=== PATIENT | female | born 1970 | race Caucasian/White ===

== ENCOUNTER → 2021-06-23 | Outpatient (CLI) | payer OTHER ==
[~2021-06-23] MED LIST: AMBIEN 10 MG TA10 MG PO; AMBIEN5 MG PO; AMITRIPTYLINE H25 M2 PO; BACTRIM DS TAB1 EACH PO; CELEBREX 200 M200 MG PO; CELEXA20 MG PO; CYCLOBENZAPRINE10 MG PO; CYMBALTA60 MG PO; DOXYCYCLINE 10100 MG PO; ENDOCET 5-3251 EACH PO; GLUCOPHAGE1000 MG PO; HYDROCODONE-AP1 EAC6 PO; INVOKANA100 MG PO; ONDANSETRON HCL4 M2 PO; OXYCONTIN10 M1 PO; OXYCONTIN30 MG PO; PRADAXA150 MG PO; PROPRANOLOL 20M20 M1 PO; SEROQUEL XR 20200 MG PO; SEROQUEL XR50 MG PO; TUSSIONEX PENN473 ML PO; VENTOLIN HFA 1818 GM INH; WELLBUTRIN XL300 M2 PO; XANAX1 MG PO; ZANAFLEX2 M1 PO; ZANTAC 150MG T150 MG PO
== END ==
LOC: HYPER 07:41
PROVIDERS: ATTEND Emergency Medicine
DX: L97.812 Non-pressure chronic ulcer of other part of right lower leg with fat layer exposed (principal); I87.2 Venous insufficiency (chronic) (peripheral); M13.80 Other specified arthritis, unspecified site; I82.593 Chronic embolism and thrombosis of other specified deep vein of lower extremity, bilateral; M54.5 Low back pain; R60.0 Localized edema; E66.9 Obesity, unspecified; Z68.28 Body mass index [BMI] 28.0-28.9, adult; F17.200 Nicotine dependence, unspecified, uncomplicated; Z79.899 Other long term (current) drug therapy

== ENCOUNTER → 2021-06-28 | Outpatient (CLI) | payer OTHER | LOC: HYPER 09:18 | PROVIDERS: ATTEND Emergency Medicine | DX: L97.812 Non-pressure chronic ulcer of other part of right lower leg with fat layer exposed (principal); I87.2 Venous insufficiency (chronic) (peripheral); I82.593 Chronic embolism and thrombosis of other specified deep vein of lower extremity, bilateral; R60.0 Localized edema; E66.9 Obesity, unspecified; M13.80 Other specified arthritis, unspecified site; M54.5 Low back pain; Z13.31 Encounter for screening for depression; Z68.28 Body mass index [BMI] 28.0-28.9, adult ==

== ENCOUNTER → 2021-07-06 | Outpatient (CLI) | payer OTHER | LOC: HYPER 08:27 | PROVIDERS: ATTEND Emergency Medicine | DX: L97.812 Non-pressure chronic ulcer of other part of right lower leg with fat layer exposed (principal); I87.2 Venous insufficiency (chronic) (peripheral); I82.593 Chronic embolism and thrombosis of other specified deep vein of lower extremity, bilateral; R60.0 Localized edema; E66.9 Obesity, unspecified; M13.80 Other specified arthritis, unspecified site; M54.5 Low back pain; Z13.31 Encounter for screening for depression; Z68.28 Body mass index [BMI] 28.0-28.9, adult ==

== ENCOUNTER → 2021-07-12 | Outpatient (CLI) | payer OTHER | LOC: HYPER 08:03 | PROVIDERS: ATTEND Emergency Medicine | DX: L97.812 Non-pressure chronic ulcer of other part of right lower leg with fat layer exposed (principal); I87.2 Venous insufficiency (chronic) (peripheral); I82.593 Chronic embolism and thrombosis of other specified deep vein of lower extremity, bilateral; R60.0 Localized edema; E66.9 Obesity, unspecified; M54.50 Low back pain, unspecified; M13.80 Other specified arthritis, unspecified site; Z13.31 Encounter for screening for depression; Z68.28 Body mass index [BMI] 28.0-28.9, adult ==

== ENCOUNTER → 2021-07-12 | Outpatient (CLI) | payer OTHER | LOC: SJCVCIMAG 11:04 | PROVIDERS: ATTEND Emergency Medicine | DX: M79.605 Pain in left leg (principal); M79.604 Pain in right leg; R60.0 Localized edema ==

== ENCOUNTER → 2021-07-19 | Outpatient (CLI) | payer OTHER | LOC: HYPER 12:11 | PROVIDERS: ATTEND Emergency Medicine | DX: L97.812 Non-pressure chronic ulcer of other part of right lower leg with fat layer exposed (principal); I87.2 Venous insufficiency (chronic) (peripheral); M13.80 Other specified arthritis, unspecified site; I82.593 Chronic embolism and thrombosis of other specified deep vein of lower extremity, bilateral; R60.0 Localized edema; M54.50 Low back pain, unspecified; E66.9 Obesity, unspecified; F32.9 Major depressive disorder, single episode, unspecified; F17.200 Nicotine dependence, unspecified, uncomplicated; Z68.28 Body mass index [BMI] 28.0-28.9, adult; Z79.899 Other long term (current) drug therapy ==

== ENCOUNTER → 2021-08-02 | Outpatient (CLI) | payer OTHER | LOC: HYPER 07:42 | PROVIDERS: ATTEND Emergency Medicine Emergency Medical Services | DX: L97.812 Non-pressure chronic ulcer of other part of right lower leg with fat layer exposed (principal); I87.2 Venous insufficiency (chronic) (peripheral); M13.80 Other specified arthritis, unspecified site; I82.593 Chronic embolism and thrombosis of other specified deep vein of lower extremity, bilateral; R60.0 Localized edema; M54.50 Low back pain, unspecified; E66.9 Obesity, unspecified; F32.9 Major depressive disorder, single episode, unspecified; F17.200 Nicotine dependence, unspecified, uncomplicated; Z68.28 Body mass index [BMI] 28.0-28.9, adult; Z79.899 Other long term (current) drug therapy ==

== ENCOUNTER → 2021-08-18 | Outpatient (CLI) | payer OTHER | LOC: SJCVC 13:27 | PROVIDERS: ATTEND Nuclear Medicine Nuclear Cardiology | DX: I87.2 Venous insufficiency (chronic) (peripheral) (principal); I87.309 Chronic venous hypertension (idiopathic) without complications of unspecified lower extremity; M79.89 Other specified soft tissue disorders; F17.210 Nicotine dependence, cigarettes, uncomplicated; I25.10 Atherosclerotic heart disease of native coronary artery without angina pectoris; I10 Essential (primary) hypertension; Z72.89 Other problems related to lifestyle; Z88.5 Allergy status to narcotic agent; Z79.899 Other long term (current) drug therapy; Z82.49 Family history of ischemic heart disease and other diseases of the circulatory system ==

== ENCOUNTER → 2021-08-24 | Outpatient (CLI) | payer OTHER ==
[~2021-08-24] VITALS: Ht 172.7 cm; Wt 86.2 kg
[~2021-08-24] MED LIST changes: +DORYX MPC120 MG PO; +NEURONTIN 300M300 M2 PO; +PROTONIX40 M4 PO; +TOPROL XL25 MG PO; +XARELTO20 MG PO; +ZANAFLEX4 M1 PO
[2021-08-24 10:57] VITALS: BP 120/67
[2021-08-24 11:01] LABS: HEMATOCRIT 33.2 % (37.0-47.0); HEMOGLOBIN 9.9 gm/dL (12.0-15.0); MCH 19.2 pg (26.0-34.0); MCHC 29.9 g/dL (28.0-37.0); MCV 64.2 fL (80.0-100.0); RBC 5.18 mil/uL (4.20-5.00); RDW 17.1 % (10.5-14.5); WBC 4.4 thou/uL (4.0-11.0)
[2021-08-24 11:19] LABS: CALCIUM 9.3 mg/dL (8.5-10.1); CREATININE 0.7 mg/dL (0.6-1.0); POTASSIUM 3.8 mmol/L (3.5-5.1)
== END | disposition home or self-care (01) ==
LOC: CATH 07:14
PROVIDERS: ATTEND Nuclear Medicine Nuclear Cardiology
DX: I87.1 Compression of vein (principal); I87.323 Chronic venous hypertension (idiopathic) with inflammation of bilateral lower extremity; I10 Essential (primary) hypertension; I25.10 Atherosclerotic heart disease of native coronary artery without angina pectoris; G62.9 Polyneuropathy, unspecified; F17.210 Nicotine dependence, cigarettes, uncomplicated; Z98.890 Other specified postprocedural states; Z79.899 Other long term (current) drug therapy; Z79.01 Long term (current) use of anticoagulants; Z86.718 Personal history of other venous thrombosis and embolism; Z88.6 Allergy status to analgesic agent

== ENCOUNTER → 2021-08-31 | Outpatient (CLI) | payer OTHER | LOC: HYPER 10:42 | PROVIDERS: ATTEND Emergency Medicine | DX: L97.812 Non-pressure chronic ulcer of other part of right lower leg with fat layer exposed (principal); I87.2 Venous insufficiency (chronic) (peripheral); M13.80 Other specified arthritis, unspecified site; I82.593 Chronic embolism and thrombosis of other specified deep vein of lower extremity, bilateral; R60.0 Localized edema; M54.50 Low back pain, unspecified; E66.9 Obesity, unspecified; F17.200 Nicotine dependence, unspecified, uncomplicated; Z68.28 Body mass index [BMI] 28.0-28.9, adult; Z79.899 Other long term (current) drug therapy ==

== ENCOUNTER → 2021-09-07 | Outpatient (CLI) | payer OTHER | LOC: HYPER 09:14 | PROVIDERS: ATTEND Specialist | DX: I87.331 Chronic venous hypertension (idiopathic) with ulcer and inflammation of right lower extremity (principal); L97.812 Non-pressure chronic ulcer of other part of right lower leg with fat layer exposed; L84 Corns and callosities; I87.2 Venous insufficiency (chronic) (peripheral); I82.593 Chronic embolism and thrombosis of other specified deep vein of lower extremity, bilateral; R60.0 Localized edema; E66.9 Obesity, unspecified; M13.80 Other specified arthritis, unspecified site; M54.50 Low back pain, unspecified; F17.200 Nicotine dependence, unspecified, uncomplicated; Z68.28 Body mass index [BMI] 28.0-28.9, adult; Z13.31 Encounter for screening for depression ==

== ENCOUNTER → 2021-09-13 | Outpatient (CLI) | payer OTHER | LOC: HYPER 13:05 | PROVIDERS: ATTEND Emergency Medicine | DX: I87.331 Chronic venous hypertension (idiopathic) with ulcer and inflammation of right lower extremity (principal); L97.812 Non-pressure chronic ulcer of other part of right lower leg with fat layer exposed; M13.80 Other specified arthritis, unspecified site; I82.593 Chronic embolism and thrombosis of other specified deep vein of lower extremity, bilateral; M54.50 Low back pain, unspecified; R60.0 Localized edema; E66.01 Morbid (severe) obesity due to excess calories; F17.200 Nicotine dependence, unspecified, uncomplicated; Z68.28 Body mass index [BMI] 28.0-28.9, adult; Z79.899 Other long term (current) drug therapy ==

== ENCOUNTER → 2021-09-20 | Outpatient (CLI) | payer OTHER | LOC: HYPER 09:32 | PROVIDERS: ATTEND Emergency Medicine | DX: I87.331 Chronic venous hypertension (idiopathic) with ulcer and inflammation of right lower extremity (principal); L97.812 Non-pressure chronic ulcer of other part of right lower leg with fat layer exposed; M13.80 Other specified arthritis, unspecified site; I82.593 Chronic embolism and thrombosis of other specified deep vein of lower extremity, bilateral; M54.50 Low back pain, unspecified; R60.0 Localized edema; E66.9 Obesity, unspecified; F17.200 Nicotine dependence, unspecified, uncomplicated; Z79.899 Other long term (current) drug therapy ==

== ENCOUNTER → 2021-10-04 | Outpatient (CLI) | payer OTHER | LOC: HYPER 11:05 | PROVIDERS: ATTEND Emergency Medicine | DX: I87.331 Chronic venous hypertension (idiopathic) with ulcer and inflammation of right lower extremity (principal); L97.812 Non-pressure chronic ulcer of other part of right lower leg with fat layer exposed; M13.80 Other specified arthritis, unspecified site; I82.593 Chronic embolism and thrombosis of other specified deep vein of lower extremity, bilateral; M54.50 Low back pain, unspecified; R60.0 Localized edema; E66.9 Obesity, unspecified; F17.200 Nicotine dependence, unspecified, uncomplicated; Z79.899 Other long term (current) drug therapy ==

== ENCOUNTER → 2021-10-11 | Outpatient (CLI) | payer OTHER | LOC: HYPER 08:34 | PROVIDERS: ATTEND Emergency Medicine | DX: I87.331 Chronic venous hypertension (idiopathic) with ulcer and inflammation of right lower extremity (principal); L97.812 Non-pressure chronic ulcer of other part of right lower leg with fat layer exposed; M13.80 Other specified arthritis, unspecified site; I82.593 Chronic embolism and thrombosis of other specified deep vein of lower extremity, bilateral; M54.50 Low back pain, unspecified; R60.0 Localized edema; E66.9 Obesity, unspecified; F17.200 Nicotine dependence, unspecified, uncomplicated; Z68.28 Body mass index [BMI] 28.0-28.9, adult; Z79.899 Other long term (current) drug therapy ==